=== PATIENT | female | born 1935 | race Caucasian/White ===

== ENCOUNTER 2016-11-26 19:50 | Observation (INO) | payer MEDICARE, BC ==
[~2016-11-26 19:50] MED LIST: 24 HOUR ALLER15.8 ML; ANTIVERT25 MG PO; ASPIRIN81 M1 PO; DOCUSATE SODIU100 M2 PO; INDERAL10 MG; LISINOPRIL; LISINOPRIL20 M1 PO; LISINOPRIL40 MG; MULTI VITAMIN1 EAC2 PO; PREDNISONE5 M1 PO; PROTONIX40 M2 PO; TRAMADOL HCL50 M2 PO; VIGAMOX3 M1 LEFT EYE; VITAMIN D1000 UNI2 PO; ZOCOR10 MG; ZOCOR5 MG; ZOFRAN ODT4 MG/UDTAB PO
[2016-11-26 21:11] LABS: BASO % 0.1 % (0-2); EOS % 0.6 % (0-7); EOSINOPHIL ABSOLUTE COUNT 0.1 tho/cmm (0.0-0.7); HCT-HEMATOCRIT 42.3 % (34.0-49.0); HGB-HEMOGLOBIN 14.1 gm/dl (12.0-15.5); IMMATURE GRANULOCYTES ABSOLUTE 0.02 tho/cmm (0-0.03); IMMATURE GRANULOCYTES PERCENT 0.2 % (0-0.3); LYMPH % 10.8 % (20-45); MCH (MEAN CORPUSCULAR HGB) 29.9 pg (28.0-32.0); MCHC MEAN CORPUSCULAR HGB CONC 33.3 % (32.0-36.0); MCV (MEAN CELL VOLUME) 89.6 fl (82.0-96.0); MEAN PLATELET VOLUME 9.7 cmc (9.4-12.4); MONO % 7.1 % (0-12); MONOCYTE ABSOLUTE COUNT 0.6 tho/cmm (0.0-1.2); NEUTROPHIL ABSOLUTE COUNT 7.3 tho/cmm (1.6-8.0); NEUTROPHIL-AUTOMATED 7.3 tho/cmm (1.6-8.0); NEUTROPHILS % 81.2 % (40-80); PLATELET COUNT 373 tho/cmm (150-450); RED BLOOD COUNT 4.72 mil/cmm (4.00-5.20); RED CELL DISTRIBUTION WIDTH 14.1 % (12.4-16.4); WHITE BLOOD COUNT 8.9 tho/cmm (4.0-10.0)
[2016-11-26 21:27] LABS: ANION GAP 14 mmol/L (0-20); BLOOD UREA NITROGEN 18 mg/dl (6-24); CALCIUM 9.1 mg/dl (8.5-10.5); CARBON DIOXIDE-VENOUS 25 mmol/L (22-32); CHLORIDE 107 mmol/l (96-110); GLUCOSE 106 mg/dL (70-110); POTASSIUM 3.9 mmol/L (3.7-5.1); SODIUM 142 mmol/L (135-145); eGFR VALUE FOR BLACK 54 mL/Min
[2016-11-26 21:34] LABS: URINE BILIRUBIN NEGATIVE (NEG); URINE BLOOD SMALL (NEG); URINE GLUCOSE (UA) NEGATIVE (NEG); URINE KETONE SMALL (NEG); URINE LEUKOCYTE ESTERASE NEGATIVE (NEG); URINE NITRITE NEGATIVE (NEG); URINE PROTEIN SMALL (NEG); URINE SPECIFIC GRAVITY 1.025 (1.003-1.030)
[2016-11-26 21:42] LABS: URINE APPEARANCE CLEAR; URINE COLOR YELLOW
[2016-11-26 21:43] LABS: URINE WBC RARE /[HPF] (0-5)
[2016-11-26 21:44] LABS: URINE EPITHELIAL CELLS 0-1 /[HPF] (0-10)
[2016-11-26 21:45] LABS: URINE AMORPHOUS 1+; URINE MUCUS 1+
[2016-11-26] MEDS ORDERED: PLAQUENIL200 M1 PO (21:54)
[2016-11-26] MEDS ORDERED: MINIPRESS1 M1 (21:54)
== END 2016-11-27 18:14 ==
LOC: EDMED 19:50 → EMR2 21:22 → CAR1 22:13
PROVIDERS: Emergency Medicine; ADMIT Internal Medicine
DX: R55 Syncope and collapse (principal); I25.10 Atherosclerotic heart disease of native coronary artery without angina pectoris; R11.0 Nausea; H81.10 Benign paroxysmal vertigo, unspecified ear; R32 Unspecified urinary incontinence; I10 Essential (primary) hypertension; G25.0 Essential tremor; R49.0 Dysphonia; Z79.82 Long term (current) use of aspirin; Z79.899 Other long term (current) drug therapy; Z88.1 Allergy status to other antibiotic agents; Z88.2 Allergy status to sulfonamides; Z88.8 Allergy status to other drugs, medicaments and biological substances; Z90.710 Acquired absence of both cervix and uterus; Z90.89 Acquired absence of other organs; Z95.1 Presence of aortocoronary bypass graft; Z98.890 Other specified postprocedural states
CPT/HCPCS: A9577; G0378; J7030; P9612